=== PATIENT | female | born 1955 | race Hispanic/Latino ===

== ENCOUNTER 2016-11-12 19:13 | Emergency (ER) | payer SELFPAY ==
[~2016-11-12] VITALS: Ht 167.6 cm; Wt 77.1 kg
[2016-11-12 19:16] VITALS: BP 151/94
[2016-11-12] MEDS ORDERED: PERCOCET 5MG/325MG TAB PO ONE (20:15)
[2016-11-12] MEDS ORDERED: AUGMENTIN 875 MG TAB PO ONE (20:15)
[2016-11-12] MEDS ORDERED: AUGM875T27 PO (20:22)
[2016-11-12] MEDS ORDERED: PERC5TAB6 PO (20:23)
== END 2016-11-12 20:34 | disposition home or self-care (01) ==
LOC: M ED 20:21
DX: K02.9 Dental caries, unspecified (principal)